=== PATIENT | female | born 1990 | race American Indian/Alaskan Native ===

== ENCOUNTER 2016-10-20 20:25 | Outpatient (CLI) | payer MEDICAID ==
[2016-10-20] MEDS ORDERED: LACTATED RINGERS 500 ML IV ONE (20:34)
[2016-10-20 21:07] LABS: Bilirubin,Urine NEG (Negative); Blood,Urine NEG (Negative); Ketones,Urine NEG (Negative); Leukocyte Esterase,Urine TR (Negative); Mucus,Urine FEW /HPF; Nitrite,Urine NEG (Negative); Protein,Urine <15 mg/dL mg/dL (Negative); Urobilinogen,Urine < 2.0 mg/dL (<2.0)
== END 2016-10-20 21:45 | disposition home or self-care (01) ==
LOC: TRG 20:25
PROVIDERS: ATTEND Obstetrics & Gynecology
DX: O47.02 False labor before 37 completed weeks of gestation, second trimester (principal); Z3A.25 25 weeks gestation of pregnancy
CPT/HCPCS: 59025; 81001

== ENCOUNTER 2018-01-23 22:00 | Emergency (ER) | payer SELFPAY ==
[2018-01-23 22:16] VITALS: BP 126/76
[2018-01-23 23:13] LABS: Basophils # (Auto) 0.1 K/mm3 (0.0-0.1); Basophils % (Auto) 0.7 % (0.0-1.8); Eosinophils # (Auto) 0.4 K/mm3 (0.0-0.4); Eosinophils % (Auto) 4.6 % (0.0-4.3); Hematocrit 36.8 % (30.3-42.9); Hemoglobin 12.5 gm/dl (10.1-14.3); Lymphocytes # (Auto) 3.3 K/mm3 (1.2-5.4); Lymphocytes % (Auto) 36.1 % (13.4-35.0); Mean Corpuscular HGB Conc 34 % (30-34); Mean Corpuscular Hemoglobin 29 pg (28-32); Mean Corpuscular Volume 86 fl (79-97); Monocytes # (Auto) 0.8 K/mm3 (0.0-0.8); Platelet Count 132 K/mm3 (140-440); Red Blood Count 4.29 M/mm3 (3.65-5.03); Red Cell Distribution Width 13.8 % (13.2-15.2)
[2018-01-23 23:29] LABS: BUN/Creatinine Ratio 10; Blood Urea Nitrogen 8 mg/dL (7-17); Calcium 9.2 mg/dL (8.4-10.2); Hemolysis Index 2
[2018-01-24 06:11] LABS: Bacteria,Urine 1+ /HPF (Negative); Bilirubin,Urine NEG (Negative); Blood,Urine MOD (Negative); Mucus,Urine 3+ /HPF
[2018-01-24 06:16] LABS: Color,Urine Yellow (Yellow)
== END 2018-01-24 02:30 | disposition left against medical advice (07) ==
LOC: ED 22:00
DX: R11.2 Nausea with vomiting, unspecified (principal); Z53.21 Procedure and treatment not carried out due to patient leaving prior to being seen by health care provider
CPT/HCPCS: 36415; 80048; 81001; 85025

== ENCOUNTER 2018-06-20 10:45 | Emergency (ER) | payer MEDICAID, OTHER ==
[2018-06-20 10:55] VITALS: BP 124/74
--- NOTE | 2018-06-20 12:30 | Emergency Department Report ---
HPI - General Chief Complaint: Upper Respiratory Infection Time Seen by Provider: 06/20/18 12:21 - HPI HPI: Room 29 The patient is a 28-year-old female presenting with a chief complaint of dry cough and body aches. The patient states for the past 4 days she has had a dry cough pain in the left chest and back with her cough. Patient is to rhinorrhea and subjective fever. The patient states her throat feels "scratchy." Patient denies nausea/vomiting. Patient has no known sick contacts Location: [See above] Duration: 4 days Quality: Achy Severity: Moderate Modifying factors: [see above] Context: [see above] Mode of transportation: [not driving] ED Past Medical Hx - Past Medical History Previous Medical History?: No - Surgical History Past Surgical History?: No - Family History Family history: no significant - Social History Smoking Status: Never Smoker Substance Use Type: None (denies illicit drug use), Alcohol (occasional) - Medications Home Medications: Home Medications Medication Instructions Recorded Confirmed Last Taken Type Azithromycin [Zithromax Z-DUSTIN] 0 mg PO DAILY #6 tab 06/20/18 Unknown Rx Benzonatate [Tessalon Perle] 100 mg PO TID PRN #30 capsule 06/20/18 Unknown Rx Ibuprofen [Motrin 800 MG tab] 800 mg PO Q8HR PRN #20 tablet 06/20/18 Unknown Rx ED Review of Systems ROS: Stated complaint: FLU LIKE SYMPTOMS Other details as noted in HPI Constitutional: fever (subjective) Eyes: denies: eye pain ENT: other (rhinorrhea). denies: throat pain Respiratory: cough Cardiovascular: denies: palpitations Endocrine: no symptoms reported Gastrointestinal: denies: abdominal pain, nausea, vomiting Genitourinary: denies: dysuria Musculoskeletal: back pain, myalgia Neurological: denies: headache Physical Exam - Physical Exam Vital Signs: Vital Signs 06/20/18 10:48 Temperature 98 F Pulse Rate 82 Respiratory 18 Rate Blood Pressure 124/74 O2 Sat by Pulse 98 Oximetry Physical Exam: GENERAL: The patient is well-developed well-nourished female sitting in chair not appearing to be in acute distress. [] HEENT: Normocephalic. Atraumatic. Extraocular motions are intact. Patient has moist mucous membranes. Oropharynx clear NECK: Supple. No meningitic signs are noted. Trachea midline CHEST/LUNGS: Clear to auscultation. There is no respiratory distress noted. HEART/CARDIOVASCULAR: Regular. There is no tachycardia. There is no gallop rub or murmur. ABDOMEN: Abdomen is soft, nontender. Patient has normal bowel sounds. There is no abdominal distention. SKIN: There is no rash. There is no edema. There is no diaphoresis. NEURO: The patient is awake, alert, and oriented. The patient is cooperative. The patient has normal speech MUSCULOSKELETAL: There is no evidence of acute injury. ED Course Vital Signs 06/20/18 10:48 Temperature 98 F Pulse Rate 82 Respiratory 18 Rate Blood Pressure 124/74 O2 Sat by Pulse 98 Oximetry ED Medical Decision Making - Lab Data Influenza negative - Radiology Data Radiology results: image reviewed (chest x-ray) interpreted by me: Chest x-ray-no focal infiltrate, no pneumothorax - Differential Diagnosis influenza, bronchitis, pneumonia, Critical care attestation.: If time is entered above; I have spent that time in minutes in the direct care of this critically ill patient, excluding procedure time. ED Disposition Clinical Impression: Acute bronchitis Disposition: - TO HOME OR SELFCARE Is pt being admited?: No Does the pt Need Aspirin: No Condition: Stable Instructions: Acute Bronchitis (ED) Additional Instructions: Return to the emergency department immediately should you develop worsening symptoms, fever, inability to tolerate food or liquid or any other concerns. Prescriptions: Azithromycin [Zithromax Z-DUSTIN] 0 mg PO DAILY #6 tab Benzonatate [Tessalon Perle] 100 mg PO TID PRN #30 capsule PRN Reason: Cough Ibuprofen [Motrin 800 MG tab] 800 mg PO Q8HR PRN #20 tablet PRN Reason: Pain, Moderate (4-6) Referrals: [facility] [Primary Care Provider] - 3-5 Days Time of Disposition: 13:34
[2018-06-20 13:00] LABS: HCG Qualitative,Urine Negative (Negative)
--- NOTE | 2018-06-20 13:42 | XRay Report ---
ROUTINE CHEST, TWO VIEWS: HISTORY: Cough. The trachea, heart, mediastinal contour, lung roth and bony thorax are unremarkable. IMPRESSION: Unremarkable chest x-ray.
== END 2018-06-20 13:39 | disposition home or self-care (01) ==
LOC: ED 10:45
DX: J20.9 Acute bronchitis, unspecified (principal); Z88.0 Allergy status to penicillin
CPT/HCPCS: 71046; 81025; 87400